=== PATIENT | male | born 1990 ===

== ENCOUNTER 2022-07-09 10:31 | Emergency (ER) | payer SELFPAY ==
--- NOTE | 2022-07-09 15:40 | Event Note ---
ED Screening Note ED Screening Note: 32-year-old male presents with right middle finger laceration which he sustained accidentally at the blade at work prior to arrival. 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 In the setting of a significantly high volume and record number of patients presenting to the emergency department and the fact that we have a limited space to see patients we have implemented the provider in triage protocol this allows an expedited initial exam of patients that might otherwise have left without being seen or who would wait longer than usual to be seen by provider. I interviewed the patient and performed a limited physical exam. This patient is a pulled from the waiting room to triage room for an initial assessment of adrenal studies and then returned to the waiting room pending results of the studies. The ultimate final evaluation and disposition may be performed by another provider depending on room and provider availability.
--- NOTE | 2022-07-09 16:10 | XRay Report ---
RIGHT HAND 3 VIEWS 1600 INDICATION: trauma, pain 3rd finger COMPARISON: None available. FINDINGS: No fractures or dislocations. Soft tissue defect is seen ventrally in the mid to distal mid dle finger ventral to the distal interphalangeal joint. Tiny foreign bodies are seen which appear to be along the surface of the laceration rather than deep within the soft tissues. No obvious evidence of bony injury is seen. Signer Name: Hilario Merchant MD Signed: 07/09/2022 4:06 PM Workstation Name: [id number]
[2022-07-09] MEDS ORDERED: LIDOCAINE-MPF (1%) 10 MG/1 ML VIAL 5 ML INFILTRATI ONE (16:29)
[2022-07-09] MEDS ORDERED: HYDROcodone/ACETAMINOPHEN 5-325 MG TAB PO ONE (16:30)
[2022-07-09] MEDS ORDERED: IBUPROFEN 800 MG TAB PO ONE (16:30)
--- NOTE | 2022-07-09 18:07 | Emergency Department Report ---
ED Laceration HPI - HPI Chief Complaint: Wound/Laceration Stated Complaint: CUT FINGER Time Seen by Provider: 07/09/22 16:08 Occurred When: Today Severity: moderate Laceration Symptoms: Yes Pain, No Foreign Body Sensation, No Numbness, No Weakness ED Review of Systems ROS: Stated complaint: CUT FINGER Other details as noted in HPI Constitutional: no symptoms reported ENT: as per HPI Respiratory: denies: cough, orthopnea Cardiovascular: denies: as per HPI, chest pain, dyspnea on exertion, orthopnea, edema Endocrine: no symptoms reported ED Past Medical Hx - Past Medical History Previous Medical History?: No - Medications Home Medications: Home Medications Medication Instructions Recorded Confirmed Last Taken Type Ibuprofen [Motrin 800 MG tab] 800 mg PO ONCE PRN #20 tablet 07/09/22 Unknown Rx cephALEXin [Keflex] 500 mg PO Q12HR 5 Days #10 cap 07/09/22 Unknown Rx Laceration Physical Exam - Exam General: Vital signs noted. No distress. Alert and acting appropriately. Patient has a 1 cm avulsion skin laceration to the PIP area of his right index finger. 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 Intact pulses sensation cap refill. X-rays reassuring and did not show any acute fractures. Wound Length (cm): 1 Laceration Location: Upper Extremity Laceration Exam: Yes Exposed Tendon, Vessel, or Nerve, Yes Normal Distal CMS, No Foreign Body, No Tendon Injury ED Course Vital Signs 07/09/22 11:01 Temperature 98.7 F Pulse Rate 71 Respiratory 16 Rate Blood Pressure 130/85 [Right] O2 Sat by Pulse 100 Oximetry - Procedure Description Procedures done: Verbal consent obtained from patient for laceration repair, patient verbalizes understanding of the risk and benefits involved in repair. Laceration of his right middle finger repaired. Patient has a 1 cm avulsion laceration, area irrigated tolerated with saline and Betadine, no foreign body, no fractures, anesthetized with lidocaine 1% without epi. 2 Prolene sutures placed, patient tolerated procedure well, nonadhesive dressing, wrap. Patient verbalized understand everything discussed. ED Medical Decision Making - Medical Decision Making 32-year-old male presents with right middle finger laceration which he sustained accidentally at the blade at work prior to arrival. Bleeding controlled, vaccine r status updated, patient is neurovascularly neuromuscularly intact, no obvious tendon injury, Area repaired patient tolerated. Due to the area cut and the extensive time wound has been left open, patient treated with prophylactic antibiotics for 5- day Patient remained stable nontoxic-appearing, afebrile, ambulating steadily without assistance. Gone over ED findings with patient as well as plan for follow-up. Also discussed return precautions with patient, all questions and concerns addressed. Patient is stable to be discharged follow-up outpatient. Audio voice dictation device used, hence the chart might contain some dictation errors, mispronunciations, wrong spelling and wrong verbiage. Critical care attestation.: If time is entered above; I have spent that time in minutes in the direct care of this critically ill patient, excluding procedure time. ED Disposition Clinical Impression: Laceration of finger Disposition: 01 HOME / SELF CARE / HOMELESS Is pt being admited?: No Does the pt Need Aspirin: No Condition: Stable Instructions: Laceration Care, Adult Prescriptions: cephALEXin [Keflex] 500 mg PO Q12HR 5 Days #10 cap Ibuprofen [Motrin 800 MG tab] 800 mg PO ONCE PRN #20 tablet PRN Reason: Pain , Severe (7-10)
[2022-07-09] MEDS ORDERED: TETANUS,DIPHTHERIA TOXOID ADULT 0.5 ML INJ IM ONE (19:00)
[2022-07-09 20:51] VITALS: BP 139/87
== END 2022-07-09 20:51 | disposition home or self-care (01) ==
LOC: ED 10:31
DX: S61.212A Laceration without foreign body of right middle finger without damage to nail, initial encounter (principal); Z79.899 Other long term (current) drug therapy; W26.8XXA Contact with other sharp object(s), not elsewhere classified, initial encounter; Y93.89 Activity, other specified; Y92.89 Other specified places as the place of occurrence of the external cause; Y99.8 Other external cause status
CPT/HCPCS: 12001; 73130; 90714; 99283; J3490